=== PATIENT | male | born 1990 | race Caucasian/White ===

== ENCOUNTER → 2021-05-12 | Outpatient (CLI) | payer OTHER | LOC: CPPFTMAIN 12:56 | DX: R06.09 Other forms of dyspnea (principal) | CPT/HCPCS: 94060; 94726; 94729 ==

== ENCOUNTER → 2022-06-23 | Outpatient (CLI) | payer OTHER ==
--- NOTE | 2022-06-23 21:34 | MR ---
EXAMINATION TYPE: MR knee LT wo con DATE OF EXAM: 06/23/2022 COMPARISON: No radiographic correlation available HISTORY: 32-year-old male M25.562 Left knee pain behind knee TECHNIQUE: Multiplanar, multisequence imaging of the left knee is performed without IV contrast. FINDINGS: There is an area of serpiginous bone infarct within the intramedullary space of the distal femoral di aphysis measuring 4.5 x 1.8 x 1.5 cm. Otherwise, no suspicious bone marrow replacement. There is increased signal along the intact ACL fibers. PCL, MCL, and LCL complex are intact. The medial meniscus is intact. Mild diffuse thinning of medial compartment articular cartilage volume . There is a small 7 mm meniscal cyst adjacent to the anterior root of the lateral meniscus. Otherwise, the lateral meniscus is intact. Overall preserved lateral compartment articular cartilage volume. Mild thinning of patellofemoral compartment articular cartilage. No focal chondral defect. Incidental ly, there is a somewhat short medial facet of the superior trochlear groove, axial image 29. Some minimal intermediate signal involving the proximal deep patellar tendon fibers. Extensor mechani sm otherwise intact. Mild signal within the suprapatellar fat pad is nonspecific. There is aberrant high takeoff of the anterior tibial artery to course deep to the popliteus muscle. Tiny 1.4 x 3.2 cm Medrano's cyst is noted. Physiologic joint fluid. IMPRESSION: 1. A 4.5 x 1.8 cm bone infarct located within the intramedullary space of the distal femoral diaphysi s. Correlate for any risk factors in this patient such as hemoglobinopathies, chronic steroid/alcohol use, connective tissue disorders, etc. 2. Either grade 1 ACL sprain versus some mucoid degeneration. 3. A 7 mm parameniscal cyst adjacent to the anterior root of the lateral meniscus suggesting a subtle , small underlying tear here. 4. 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 5. Mild proximal patellar tendinosis. Some mild edema within the suprapatellar fat pad is nonspecific but may be seen in setting of fat pad impingement syndrome. Clinically correlate. 6. Incidental aberrant high takeoff of the anterior tibial artery. 7. Tiny Medrano's cyst.
== END | disposition home or self-care (01) ==
LOC: RADMRIMAIN 15:57
DX: M23.042 Cystic meniscus, anterior horn of lateral meniscus, left knee (principal); M22.2X2 Patellofemoral disorders, left knee; M71.22 Synovial cyst of popliteal space [Baker], left knee

== ENCOUNTER 2022-09-14 14:30 | Emergency (ER) | payer OTHER ==
[2022-09-14 15:02] VITALS: BP 145/89; PULSE 82; RESP 20; TEMP 99.1
--- NOTE | 2022-09-14 15:14 | ED ---
Burn/Smoke HPI - General Source: patient, RN notes reviewed Mode of arrival: ambulatory Limitations: no limitations - History of Present Illness MD Complaint: chemical exposure <Starla Mason - Last Filed: 09/14/22 15:09> <Leander Erazo - Last Filed: 09/14/22 21:39> - General Chief complaint: Burn/Smoke Inhalation Stated complaint: chemical inhalation Time Seen by Provider: 09/14/22 15:05 - History of Present Illness Initial comments: This is a 32-year-old male who presents to the emergency department for chemical inhalation. While at work at around 11 AM this morning, patient inhaled Isocyanate DA and has since been feeling short of breath with chest tightness. Denies any history of asthma or other respiratory illnesses. (Starla Mason) This is a 32-year-old male with no past medical history presents emergency department for inhalation of a chemical at work. 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 The patient had irrigation in his throat as well as some mild shortness of breath and this had all occurred at noon earlier in the day. The patient stated that evaluated at the facility and was recommended to come to the emergency department for further evaluation. On evaluation, the patient noted only minor irritation to his throat without any difficulty in breathing. The patient was otherwise resting in bed comfortably without any acute distress. (Leander Erazo) - Related Data Allergies Allergy/AdvReac Type Severity Reaction Status Date / Time No Known Allergies Allergy Verified 09/14/22 15:02 Review of Systems ROS Other: All systems not noted in ROS Statement are negative. <Starla Mason - Last Filed: 09/14/22 15:09> ROS Other: All systems not noted in ROS Statement are negative. <Leander Erazo - Last Filed: 09/14/22 21:39> ROS Statement: Those systems with pertinent positive or pertinent negative responses have been documented in the HPI. Past Medical History Past Medical History: Hypertension History of Any Multi-Drug Resistant Organisms: None Reported Past Surgical History: Orthopedic Surgery Additional Past Surgical History / Comment(s): lt wrist Past Psychological History: Anxiety Smoking Status: Vaper Past Alcohol Use History: Daily Past Drug Use History: Marijuana <Starla Mason - Last Filed: 09/14/22 15:09> General Exam Limitations: no limitations <Starla Mason - Last Filed: 09/14/22 15:09> Limitations: no limitations General appearance: alert, in no apparent distress Head exam: Present: atraumatic, normocephalic, normal inspection Eye exam: Present: normal appearance, PERRL Pupils: Present: normal accommodation ENT exam: Present: normal exam, normal oropharynx, mucous membranes moist Neck exam: Present: normal inspection, full ROM Respiratory exam: Present: normal lung sounds bilaterally. Absent: respiratory distress, wheezes Cardiovascular Exam: Present: regular rate, normal rhythm, normal heart sounds GI/Abdominal exam: Present: soft, normal bowel sounds Extremities exam: Present: normal inspection, full ROM Back exam: Present: normal inspection, full ROM Neurological exam: Present: alert, oriented X3, CN II-XII intact Psychiatric exam: Present: normal affect, normal mood Skin exam: Present: warm, dry <Leander Erazo - Last Filed: 09/14/22 21:39> - General Exam Comments Initial Comments: Visual Physical Exam Vital signs reviewed General: Well-appearing, nontoxic, no acute distress. Head: Normocephalic, atraumatic Eyes: PERRLA, EOMI ENT: Airway patent Chest: Nonlabored breathing Skin: No visual rash, normal skin tone Neuro: Alert and oriented 3 Musculoskeletal: No gross abnormalities (Starla Mason) Course Vital Signs 09/14/22 14:53 Temperature 99.1 F Pulse Rate 82 Respiratory 20 Rate Blood Pressure 145/89 O2 Sat by Pulse 100 Oximetry Medical Decision Making <Starla Mason - Last Filed: 09/14/22 15:09> <Leander Erazo - Last Filed: 09/14/22 21:39> - Medical Decision Making I performed the QuickNote portion of this chart. Signed Starla Mason PA-C. (Starla Mason) Was pt. sent in by a medical professional or institution (CARLOS Garcia, CONCRETE FINISHING MACHINE OPERATOR, urgent care, hospital, or penitentiary...) When possible be specific @ -No Did you speak to anyone other than the patient for history (EMS, parent, family, police, friend...)? What history was obtained from this source @ -No Did you review nursing and triage notes (agree or disagree)? Why? @ -I reviewed and agree with nursing and triage notes Were old charts reviewed (outside hosp., previous admission, EMS record, old EKG, old radiological studies, urgent care reports/EKG's, penitentiary records)? Report findings @ -No old charts were reviewed Differential Diagnosis (chest pain, altered mental status, abdominal pain women, abdominal pain men, vaginal bleeding, weakness, fever, dyspnea, syncope, headache, dizziness, GI bleed, back pain, seizure, CVA, palpatations, mental health)? @ -Bronchitis, chemical irritation, chemical burn EKG interpreted by me (3pts min.). @ -None X-rays interpreted by me (1pt min.). @ -Chest x-ray was obtained and was interpreted by myself showing no acute process. CT interpreted by me (1pt min.). @ -None done U/S interpreted by me (1pt. min.). @ -None done What testing was considered but not performed or refused? (CT, X-rays, U/S, labs)? Why? @ -None What meds were considered but not given or refused? Why? @ -None Did you discuss the management of the patient with other professionals (professionals i.e. , PA, CONCRETE FINISHING MACHINE OPERATOR, lab, RT, psych nurse, hospital social worker, admissions manager rn, teacher, payroll officer, casework manager)? Give summary @ -No Was smoking cessation discussed for >3mins.? @ -No Was critical care preformed (if so, how long)? @ -No Were there social determinants of health that impacted care today? How? (Homelessness, low income, unemployed, alcoholism, drug addiction, transportation, low edu. Level, literacy, decrease access to med. care, alf, rehab)? @ -No Was there de-escalation of care discussed even if they declined (Discuss DNR or withdrawal of care, Hospice)? DNR status @ -No What co-morbidities impacted this encounter? (DM, HTN, Smoking, COPD, CAD, Cancer, CVA, ARF, Chemo, Hep., AIDS, mental health diagnosis, sleep apnea, mo rbid obesity)? @ -None Was patient admitted / discharged? Hospital course, mention meds given and route, prescriptions, significant lab abnormalities, going to OR and other pertinent info. @ -The patient was seen and evaluated in the emergency department. Physical exam, the patient was resting in bed without any acute distress. Vital signs admission were stable. Due to the nature the patient's complaints, an x-ray was obtained and was within normal limits. The patient denied of any respiratory distress and had normal physical exam. The patient was resting in bed comfortably without any symptoms therefore was stable for discharge home. The patient was advised to continue to monitor his symptoms and to report back to the emergency department if his pain or symptoms became acutely worse. The patient was agreeable to this and all his questions were answered appropriately. The patient was discharged home in stable condition. Undiagnosed new problem with uncertain prognosis? @ -No Drug Therapy requiring intensive monitoring for toxicity (Heparin, Nitro, Insulin, Cardizem)? @ -No Were any procedures done? @ -No Diagnosis/symptom? @ -Chemical inhalation Acute, or Chronic, or Acute on Chronic? @ -Acute Uncomplicated (without systemic symptoms) or Complicated (systemic symptoms)? @ -Uncomplicated Side effects of treatment? @ -No Exacerbation, Progression, or Severe Exacerbation? @ -No Poses a threat to life or bodily function? How? (Chest pain, [place], [place], pneumonia, PE, COPD, DKA, ARF, appy, cholecystitis, CVA, Diverticulitis, Homicidal, Suicidal, threat to staff... and all critical care pts) @ -No (Leander Erazo) Disposition <Starla Mason - Last Filed: 09/14/22 15:09> Is patient prescribed a controlled substance at d/c from ED?: No Time of Disposition: 16:30 <Leander Erazo - Last Filed: 09/14/22 21:39> Clinical Impression: Exposure to chemical inhalation Disposition: HOME SELF-CARE Condition: Stable Instructions (If sedation given, give patient instructions): Smoke Inhalation (ED) Referrals: [facility],Clinic [Primary Care Provider] - 1-2 days
--- NOTE | 2022-09-14 15:26 | XR ---
EXAMINATION TYPE: XR chest 2V DATE OF EXAM: 09/14/2022 COMPARISON: NONE TECHNIQUE: PA and lateral views submitted. HISTORY: Cough FINDINGS: The lungs are clear and there is no pneumothorax, pleural effusion, or focal pneumonia. Heart size normal and no overt failure. Osseous structures intact. Hyperinflation suggesting asthma or COPD.. IMPRESSION: 1. No acute process. Hyperinflation of the lungs May be associated with asthma or COPD.
== END 2022-09-14 17:17 | disposition home or self-care (01) ==
LOC: EC 14:30
DX: Z77.098 Contact with and (suspected) exposure to other hazardous, chiefly nonmedicinal, chemicals (principal); I10 Essential (primary) hypertension; F12.90 Cannabis use, unspecified, uncomplicated; F17.290 Nicotine dependence, other tobacco product, uncomplicated; Z86.59 Personal history of other mental and behavioral disorders
CPT/HCPCS: 71046; 99283

== ENCOUNTER 2022-10-21 11:24 | Emergency (ER) | payer OTHER ==
[2022-10-21 11:29] VITALS: TEMP 98
[2022-10-21] MEDS ORDERED: SODIUM CHLORIDE 0.9% 1,000 ML IV ONE (11:44)
[2022-10-21 12:16] LABS: Basophils % (A) 0 %; Eosinophils # (A) 0.1 k/uL (0-0.7); Eosinophils % (A) 2 %; HCT 45.7 % (39.0-53.0); HGB 15.4 gm/dL (13.0-17.5); Lymphocytes # (A) 1.7 k/uL (1.0-4.8); Lymphocytes % (A) 22 %; MCH 34.6 pg (25.0-35.0); MCHC 33.8 g/dL (31.0-37.0); MCV 102.5 fL (80.0-100.0); Macrocytosis Slight; Mean Platelet Volume 7.5; Monocytes # (A) 0.4 k/uL (0-1.0); Monocytes % (A) 6 %; Neutrophils # (A) 5.2 k/uL (1.3-7.7); Neutrophils % (A) 68 %; Platelet Count 210 k/uL (150-450); RBC 4.46 m/uL (4.30-5.90); RDW 12.2 % (11.5-15.5); WBC 7.5 k/uL (3.8-10.6)
[2022-10-21 12:24] LABS: ALT 53 U/L (4-49); AST 53 U/L (17-59); African American GFR (CKD) >90 (>60 ml/min/1.73 sqM); Albumin 4.6 g/dL (3.5-5.0); Alkaline Phosphatase 78 U/L (38-126); Anion Gap 10 mmol/L; Blood Urea Nitrogen 14 mg/dL (9-20); Calcium 9.6 mg/dL (8.4-10.2); Carbon Dioxide 22 mmol/L (22-30); Chloride 105 mmol/L (98-107); Glucose 97 mg/dL (74-99); Magnesium 1.9 mg/dL (1.6-2.3); Non-African American GFR(CKD) >90 (>60 ml/min/1.73 sqM); Potassium 3.8 mmol/L (3.5-5.1); Sodium 137 mmol/L (137-145); Total Bilirubin 0.7 mg/dL (0.2-1.3); Total Protein 7.5 g/dL (6.3-8.2)
--- NOTE | 2022-10-21 12:29 | ED ---
Chest Pain HPI - General Chief Complaint: Chest Pain Stated Complaint: Palpitations Time Seen by Provider: 10/21/22 11:33 Source: patient, RN notes reviewed Mode of arrival: ambulatory Limitations: no limitations - History of Present Illness Initial Comments: 32-year-old male presents emergency Department chief complaint of palpitations. Patient states he noticed some symptoms last night states he went to bed but symptoms got worse or returns again today. Patient denies any associated pain states is just some fluttering and skipping a beat. Patient states never experiences any like this in the past. Patient denies any prior cardiac, lung disease no thyroid disease. Patient states he does go to a primary care physician at the [facility]. Patient denies any supple is no illicit drug use. - Related Data Allergies Allergy/AdvReac Type Severity Reaction Status Date / Time nickel Allergy Rash/Hives Verified 10/21/22 11:29 Review of Systems ROS Statement: Those systems with pertinent positive or pertinent negative responses have been documented in the HPI. ROS Other: All systems not noted in ROS Statement are negative. EKG Findings - EKG Comments: EKG Findings:: EKG performed at 11:35 sinus rhythm rate of 77 MA 135/96 QT/QTC 362/394 - EKG Results: EKG: interpreted by [place] Past Medical History Past Medical History: Hypertension History of Any Multi-Drug Resistant Organisms: None Reported Past Surgical History: Orthopedic Surgery Additional Past Surgical History / Comment(s): lt wrist Past Psychological History: Anxiety Smoking Status: Vaper Past Alcohol Use History: Daily Past Drug Use History: Marijuana General Exam Limitations: no limitations General appearance: alert, in no apparent distress Head exam: Present: atraumatic, normocephalic, normal inspection Eye exam: Present: normal appearance, PERRL, EOMI. Absent: scleral icterus, conjunctival injection, periorbital swelling ENT exam: Present: normal exam, normal oropharynx, mucous membranes moist Neck exam: Present: normal inspection, full ROM. Absent: tenderness, meningismus, lymphadenopathy Respiratory exam: Present: normal lung sounds bilaterally. Absent: respiratory distress, wheezes, rales, rhonchi, stridor Cardiovascular Exam: Present: regular rate, normal rhythm, normal heart sounds. Absent: systolic murmur, diastolic murmur, rubs, gallop, clicks Course Vital Signs 10/21/22 10/21/22 10/21/22 11:26 11:45 12:00 Temperature 98 F Pulse Rate 82 70 73 Respiratory 20 13 7 L Rate Blood Pressure 149/98 140/88 147/86 O2 Sat by Pulse 99 99 97 Oximetry 10/21/22 10/21/22 10/21/22 12:04 12:15 12:30 Temperature Pulse Rate 78 75 70 Respiratory 20 9 L 23 Rate Blood Pressure 144/84 144/84 134/83 O2 Sat by Pulse 99 98 98 Oximetry 10/21/22 13:05 Temperature Pulse Rate 82 Respiratory 20 Rate Blood Pressure 124/87 O2 Sat by Pulse 98 Oximetry Chest Pain MDM - MDM Was pt. sent in by a medical professional or institution (, PA, INSTRUCTIONAL DESIGNER, urgent care, hospital, or detention...) When possible be specific @ -No Did you speak to anyone other than the patient for history (EMS, parent, family, police, friend...)? What history was obtained from this source @ -No Did you review nursing and triage notes (agree or disagree)? Why? @ -I reviewed and agree with nursing and triage notes Were old charts reviewed (outside hosp., previous admission, EMS record, old EKG, old radiological studies, urgent care reports/EKG's, detention records)? Report findings @ -No old charts were reviewed Differential Diagnosis (chest pain, altered mental status, abdominal pain women, abdominal pain men, vaginal bleeding, weakness, fever, dyspnea, syncope, headache, dizziness, GI bleed, back pain, seizure, CVA, palpatations, mental health, musculoskeletal)? @ -Differential Palpitations Ventricular arrhythmias, atrial arrhythmias, myocardial infarction, anemia, thyrotoxicosis, electrolyte imbalance, hypokalemia, pulmonary embolism, pulmonary disease, drugs, alcohol, anxiety, stress.... This is not meant to be an all-inclusive list. EKG interpreted by me (3pts min.). @ -As above X-rays interpreted by me (1pt min.). @ -Chest x-ray shows no acute cor Department process. CT interpreted by me (1pt min.). @ -None done U/S interpreted by me (1pt. min.). @ -None done What testing was considered but not performed or refused? (CT, X-rays, U/S, labs)? Why? @ -None What meds were considered but not given or refused? Why? @ -None Did you discuss the management of the patient with other professionals (professionals i.e. , PA, INSTRUCTIONAL DESIGNER, lab, RT, psych nurse, social media community manager, merchandise team manager, teacher, interface control officer, caser in)? Give summary @ -No Was smoking cessation discussed for >3mins.? @ -No Was critical care preformed (if so, how long)? @ -No Were there social determinants of health that impacted care today? How? (Homelessness, low income, unemployed, alcoholism, drug addiction, transportation, low edu. Level, literacy, decrease access to med. care, [place] [facility], rehab)? @ -No Was there de-escalation of care discussed even if they declined (Discuss DNR or withdrawal of care, Hospice)? DNR status @ -No What co-morbidities impacted this encounter? (DM, HTN, Smoking, COPD, CAD, Cancer, CVA, ARF, Chemo, Hep., AIDS, mental health diagnosis, sleep apnea, morbid obesity)? @ -None Was patient admitted / discharged? Hospital course, mention meds given and route, prescriptions, significant lab abnormalities, going to OR and other pertinent info. @ -[Discharge patient present for palpitations patient noted her PVCs on monitor and patient states that symptoms have been feeling. Patient left or studies including d-dimer, troponin, TSH is unremarkable. Patient is discharged in stable condition with follow-up with [facility] return parameters were discussed. Undiagnosed new problem with uncertain prognosis? @ -No Drug Therapy requiring intensive monitoring for toxicity (Heparin, Nitro, Insulin, Cardizem)? @ -No Were any procedures done? @ -No Diagnosis/symptom? @ -Palpitations Acute, or Chronic, or Acute on Chronic? @ -Acute Uncomplicated (without systemic symptoms) or Complicated (systemic symptoms)? @ -Uncomplicated Side effects of treatment? @ -No Exacerbation, Progression, or Severe Exacerbation? @ -No Poses a threat to life or bodily function? How? (Chest pain, [place], [place], pneumonia, PE, COPD, DKA, ARF, appy, cholecystitis, CVA, Diverticulitis, Homicidal, Suicidal, threat to staff... and all critical care pts) @ -No Disposition Clinical Impression: Palpitations, Asymptomatic PVCs Disposition: HOME SELF-CARE Condition: Stable Instructions (If sedation given, give patient instructions): Heart Palpitations (ED), Premature Ventricular Contractions (ED) Additional Instructions: Please return to the Emergency Department if symptoms worsen or any other concerns. Is patient prescribed a controlled substance at d/c from ED?: No Referrals: [facility],Clinic [Primary Care Provider] - 1-2 days Time of Disposition: 13:18
--- NOTE | 2022-10-21 12:53 | XR ---
EXAMINATION TYPE: XR chest 2V DATE OF EXAM: 10/21/2022 COMPARISON: 09/14/2022 TECHNIQUE: PA and lateral views submitted. HISTORY: Chest pain FINDINGS: The lungs are clear and there is no pneumothorax, pleural effusion, or focal pneumonia. Heart size normal and no overt failure. Osseous structures intact. Hyperinflation suggesting asthma or COPD. IMPRESSION: 1. No acute process. Hyperexpansion of lungs can be associated with asthma or COPD.
[2022-10-21 12:57] LABS: INR 0.9 (<1.2); Partial Thromboplastin Time 23.9 sec (22.0-30.0)
[2022-10-21 13:06] VITALS: RESP 20
[2022-10-21 13:30] VITALS: BP 134/90; PULSE 86
== END 2022-10-21 13:39 | disposition home or self-care (01) ==
LOC: EC 11:24
DX: I49.3 Ventricular premature depolarization (principal); R00.2 Palpitations; I10 Essential (primary) hypertension; F41.9 Anxiety disorder, unspecified; F17.290 Nicotine dependence, other tobacco product, uncomplicated; F12.90 Cannabis use, unspecified, uncomplicated; Z88.6 Allergy status to analgesic agent
CPT/HCPCS: 36415; 71046; 80053; 83735; 84443; 84484; 85025; 85379; 85610; 85730; 93005; 96360; 99285

== ENCOUNTER → 2024-02-23 | Outpatient (CLI) | payer OTHER ==
[2024-02-23 15:07] LABS: Basophils # (A) 0.04 X 10*3/uL (0.00-0.10); Basophils % (A) 0.6 %; Eosinophils # (A) 0.23 X 10*3/uL (0.04-0.35); Eosinophils % (A) 3.2 %; HCT 44.9 % (39.6-50.0); HGB 14.5 g/dL (13.0-17.0); Lymphocytes # (A) 1.76 X 10*3/uL (0.90-5.00); Lymphocytes % (A) 24.4 %; MCH 33.2 pg (27.0-32.0); MCHC 32.3 g/dL (32.0-37.0); MCV 102.7 FL (80.0-97.0); Mean Platelet Volume 9.7 FL (9.5-12.2); Monocytes # (A) 0.85 X 10*3/uL (0.20-1.00); Monocytes % (A) 11.8 %; NRBC Per 100 WBC 0 X 10*3/uL (0.00-0.01); Neutrophils # (A) 4.32 X 10*3/uL (1.80-7.70); Neutrophils % (A) 59.7 %; Platelet Count 262 X 10*3/uL (140-440); RBC 4.37 X 10*6/uL (4.40-5.60); RDW 12.3 % (11.5-14.5); WBC 7.22 X 10*3/uL (4.50-10.00)
[2024-02-23 15:15] LABS: Blood Urea Nitrogen 16.9 mg/dL (9.0-27.0); Calcium 10.1 mg/dL (8.7-10.3); Carbon Dioxide 26.6 mmol/L (21.6-31.8); Chloride 104 mmol/L (96-109); Glucose 90 mg/dL (70-110); Potassium 4.5 mmol/L (3.5-5.5); Sodium 141 mmol/L (135-145)
== END | disposition home or self-care (01) ==
LOC: LABWHC1 08:00
PROVIDERS: ATTEND Orthopaedic Surgery
DX: Z01.812 Encounter for preprocedural laboratory examination (principal); M23.92 Unspecified internal derangement of left knee
CPT/HCPCS: 80048; 85025

== ENCOUNTER 2024-03-02 08:52 | Day surgery (SDC) | payer OTHER ==
--- NOTE | 2024-03-01 09:01 | P.HPOR ---
History of Present Illness H&P Date: 03/01/24 Chief Complaint: Left knee pain The patient is a 33-year-old male who presents with left knee pain progressing over the past 8 months. He notes posterior lateral pain with any weightbearing activity. He notes intermittent buckling and locking. He notes stiffness. He has tried medications without much relief. He notes daily pain that limits him. Review of Systems Per HPI Past Medical History Past Medical History: GERD/Reflux, Hypertension Additional Past Medical History / Comment(s): Hx. htn resolved after career change, seasonal allergies History of Any Multi-Drug Resistant Organisms: None Reported Past Surgical History: Orthopedic Surgery Additional Past Surgical History / Comment(s): Lt. wrist arthroscopy, wisdom teeth extraction Past Anesthesia/Blood Transfusion Reactions: No Reported Reaction Smoking Status: Former smoker, Vaper - Past Family History Father Additional Family Medical History / Comment(s): benign brain tumor. paternal grandmother - benign brain tumor Medications and Allergies Home Medications Medication Instructions Recorded Confirmed Type Albuterol Inhaler [Ventolin Hfa 1 - 2 inh INHALATION Q6H 02/29/24 02/29/24 History Inhaler] Ibuprofen [Motrin Ib] 400 mg PO Q8H PRN 02/29/24 02/29/24 History Loratadine 1 tab PO DAILY 02/29/24 02/29/24 History Meloxicam 7.5 mg PO BID 02/29/24 02/29/24 History Multivitamin [Multivitamins Adult 1 tab PO DAILY 02/29/24 02/29/24 History Gummies] Omeprazole 20 mg PO DAILY 02/29/24 02/29/24 History Allergies Allergy/AdvReac Type Severity Reaction Status Date / Time nickel Allergy Rash/Hives Verified 02/29/24 08:44 Physical Examination - Knee left Appearance: effusion Effusion grade: trace Tenderness with palpation: anterior, lateral Pain: throughout ROM Gait: limping ROM: extension: -5 degrees ROM: flexion: 130 degrees Crepitus with motion: Yes Strength: extension: 5/5 Strength: flexion: 5/5 Meniscal tests: lateral meniscal tests: positive, lateral joint line pain: positive Results The patient is a well-developed well-nourished male approximately 6 foot 3, 195 pounds of mesomorphic habitus. HEENT exam is nonfocal, neck is supple. He is tender about the lateral joint line of the left knee. Collaterals are stable, Akua's negative, Dick's elicits lateral pain. His distal neurovascular appears intact in the left lower extremity. - Diagnostic results Knee MRI: image reviewed (MRI of the left knee shows evidence of an anterior lateral meniscal tear along with a small parameniscal cyst.) Assessment and Plan Assessment: Left knee internal derangement/symptomatic lateral meniscal tear Plan: I talked to the patient at length regarding his condition along with treatment options. At this point he notes he is quite symptomatic despite attempted previous conservative measures. After a thorough discussion he opts to proceed with surgery. We will plan to proceed with left knee arthroscopy with possible partial lateral meniscectomy. Risks and benefits were discussed at length in layman's terms. We will likely perform that as an outpatient procedure.
[~2024-03-02 08:52] MED LIST: MIDAZOLAM 2 MG/2 ML VIAL IV PRN; SCOPOLAMINE 1 MG/72 HR PATCH TRANSDERM ONE
[2024-03-02] MEDS: IV FLUID CONTINUATION 1,000 ML IV ONE ×2 (09:52→10:01)
[2024-03-02] MEDS: LACTATED RINGERS 1,000 ML IV SCH (09:53)
[2024-03-02] MEDS ORDERED: HYDROmorphone (PF) 1 MG/ML ONE (09:54)
[2024-03-02] MEDS ORDERED: fentaNYL (PF) 50 MCG/ML 2 ML AMP ONE (09:54)
[2024-03-02] MEDS ORDERED: MIDAZOLAM 2 MG/2 ML VIAL ONE (09:54)
[2024-03-02] MEDS ORDERED: PROPOFOL 10 MG/ML 20 ML VIAL IV ONE (09:54)
[2024-03-02] MEDS ORDERED: LIDOCAINE 1% INJ 10MG/ML (20 ML MDV) ONE (09:54)
[2024-03-02] MEDS ORDERED: KETOROLAC 30 MG/ML 1 ML VIAL ONE (09:54)
[2024-03-02] MEDS: ONDANSETRON 4 MG/2 ML VIAL IVP ONE (09:57)
[2024-03-02] MEDS: DEXAMETHASONE SOD PHOSPHATE 4 MG/ML 1 ML VIAL IV ONE (09:57)
[2024-03-02] MEDS: EPINEPHrine (PF) 1 ML in SODIUM CHLORIDE 0.9% IRRIGATIO 3,000 ML IRRIGATION ONE (10:10)
--- NOTE | 2024-03-02 10:54 | P.OP ---
Date of Procedure: 03/02/24 Preoperative Diagnosis: Left knee internal derangement Postoperative Diagnosis: Left knee anterior lateral meniscal tear/partial ACL sprain/grade 3 chondral defect anterior inferior medial patella facet. Procedure(s) Performed: Left knee arthroscopic partial lateral meniscectomy/partial ACL debridement Anesthesia: NIKOLAS Surgeon: Misha Celaya Estimated Blood Loss (ml): 10 Pathology: none sent Condition: stable Disposition: PACU Indications for Procedure: The patient is a 33-year-old male who presents with persistent/progressive left knee pain and mechanical symptoms despite conservative measures. A discussion of the risks and benefits of operative intervention versus continued conservative measures was made with the patient. He opted proceed with surgery. Operative risks include infection, neurovascular injury, development of blood clots, possible incomplete resolution of symptoms, possible worsening of symptoms need for subsequent procedures was discussed. Informed consent was obtained. Operative Findings: As below Description of Procedure: The patient was brought to the operating room, and after induction of general anesthesia examined the left knee. Collaterals were stable, Akua was negative, and posterior drawer was negative. The left lower extremity was prepped and draped in a normal fashion. A superior lateral portal was made through a 3 mm skin incision superior and lateral to the patella. This was used for outflow. A lateral portal was made through a 5 mm vertical skin incision lateral to the patella tendon above the joint line. Diagnostic arthroscopy was performed. On inspection of the medial compartment, no significant cartilage or meniscal pathology was noted. On inspection of the notch, the anterior cruciate ligament appeared to have partial tearing involving the anterior lateral bundle. These fibers were impinging on the lateral compartment and were debrided with a motorized shaver. The remaining ACL appeared to be functioning and intact.. On inspection of the lateral compartment, an anterior tear involving the lateral meniscus in the white-junction was noted. This debrided back to a stable base with a motorized shaver. There is also a small flap tear involving the posterior most aspect of the lateral meniscus in the white-white junction. This attributed back to stable base with a motorized chair. The remaining lateral meniscus was stable and intact. On inspection of the patellofemoral articulation, a grade 3 chondral defect measuring 4 x 4 mm was noted along the inferior aspect of the medial patellar facet. No loose chondral fragments were noted. The gutters were clear debris. The knee was then thoroughly irrigated. The portals were closed with Steri-Strips. A sterile dressing was applied in addition to a compression stocking. The patient was awoken from general anesthesia and transferred to recovery room in good condition. Blood loss was estimated at 10 mL. No complications were incurred.
[2024-03-02 11:07] VITALS: TEMP 97.2
[2024-03-02] MEDS: HYDROmorphone 0.5 MG/0.5 ML SYRINGE IVP PRN (11:14)
[2024-03-02 11:45] VITALS: RESP 16
[2024-03-02 12:19] VITALS: BP 135/87; PULSE 69
== END 2024-03-02 12:50 | disposition home or self-care (01) ==
LOC: OR 08:52
PROVIDERS: ATTEND Orthopaedic Surgery
DX: S83.282A Other tear of lateral meniscus, current injury, left knee, initial encounter (principal); S83.512A Sprain of anterior cruciate ligament of left knee, initial encounter; M94.8X6 Other specified disorders of cartilage, lower leg; K21.9 Gastro-esophageal reflux disease without esophagitis; J30.2 Other seasonal allergic rhinitis; Z87.891 Personal history of nicotine dependence; Z79.899 Other long term (current) drug therapy; Z98.890 Other specified postprocedural states; Z79.51 Long term (current) use of inhaled steroids; Z79.1 Long term (current) use of non-steroidal anti-inflammatories (NSAID); Z91.09 Other allergy status, other than to drugs and biological substances
CPT/HCPCS: 29881; 29999; J2250; J1100; J0690; J2405; J0171; J2003; J3010; J1885; J1171 ×2; J2704